=== PATIENT | female | born 1945 | race Caucasian/White ===

== ENCOUNTER 2018-07-29 04:02 | Emergency (ER) | payer OTHER ==
[~2018-07-29] VITALS: Ht 152.4 cm; Wt 72.6 kg
[2018-07-29 04:17] VITALS: BP_SYST 143
[2018-07-29] MEDS ORDERED: MORPHINE 4 MG/ML INJ. SYRINGE IVP ONE (04:45)
[2018-07-29] MEDS ORDERED: ALEN10TA6 PO (04:52)
[2018-07-29] MEDS ORDERED: ATEN-41 PO (04:52)
[2018-07-29 04:56] LABS: ANION GAP 5 (5-15); CALCIUM 8.8 mg/dL (8.4-11.0); CHLORIDE 109 mmol/L (98-107); GLUCOSE 98 mg/dL (70-99); POTASSIUM 4.5 mmol/L (3.5-5.1); SODIUM SERUM 137 mmol/L (136-145); UREA NITROGEN, BLOOD 17 mg/dL (8-21)
[2018-07-29 05:01] LABS: ALANINE AMINOTRANSFERASE 21 U/L (12-78); ALBUMIN 3.6 g/dL (3.4-4.8); ASPARTATE AMINOTRANSFERASE 22 U/L (10-37); TOTAL BILIRUBIN 0.4 mg/dL (0.0-1.0)
[2018-07-29 05:07] LABS: INR 0.9 (0.8-1.2); PROTHROMBIN TIME 9.6 SECS (9.5-12.5)
[2018-07-29 05:09] LABS: BASOPHILS % (AUTO) 0.7 % (0.0-2.0); EOSINOPHILS # (AUTO) 0.4 K/uL (0.0-0.4); EOSINOPHILS % (AUTO) 6.1 % (0.0-4.0); HEMATOCRIT 45.8 % (36-48); LYMPHOCYTES % (AUTO) 32.2 % (20.5-51.5); MEAN CORPUSCULAR HEMOGLOBIN 31 pg (27-31); MEAN CORPUSCULAR HGB CONC 33 % (32-36); MEAN CORPUSCULAR VOLUME 95 fL (79.0-98.0); MONOCYTES # (AUTO) 0.5 K/uL (0.0-1.0); MONOCYTES % (AUTO) 8.6 % (1.7-9.3); NEUTROPHILS # (AUTO) 3.3 K/uL (1.8-7.7); NEUTROPHILS % (AUTO) 52.4 % (40.0-70.0); PLATELET COUNT (AUTO) 138 K/uL (130-430); RED BLOOD CELL COUNT(AUTO) 4.84 MIL/uL (4.2-6.2); RED CELL DISTRIBUTION WIDTH 12.7 % (9.0-15.0); WHITE BLOOD COUNT (AUTO) 6.2 K/uL (4.8-10.8)
[2018-07-29 05:40] VITALS: BP_SYST 142
== END 2018-07-29 05:40 | disposition home or self-care (01) ==
LOC: SED 04:02
DX: M17.11 Unilateral primary osteoarthritis, right knee (principal); I10 Essential (primary) hypertension; Z88.8 Allergy status to other drugs, medicaments and biological substances
CPT/HCPCS: 36415; 71045; 80053; 85025; 85610; 85730; 93005; 93971; 96374; 99284; J2270

== ENCOUNTER 2019-08-20 08:06 | Emergency (ER) | payer OTHER ==
[~2019-08-20] VITALS: Ht 152.4 cm; Wt 70.3 kg
[~2019-08-20 08:06] MED LIST: ALEN10TA7 PO; ATEN-41 PO
[2019-08-20] MEDS ORDERED: NACL 0.9% 1,000 ML IV ONE (08:10)
[2019-08-20 08:22] VITALS: BP_SYST 153
[2019-08-20] MEDS ORDERED: IPRATROPIUM BROM 0.5 MG/2.5 ML VIAL.NEB (ATROVENT) INH ONE ×3 (08:45→10:52)
[2019-08-20] MEDS ORDERED: methylPREDNISolone SOD SUCC/PF 62.5 MG/ML VIAL IVP ONE (08:45)
[2019-08-20] MEDS ORDERED: MAGNESIUM SULFATE 1 GM in NS 50 ML IV ONE (08:45)
[2019-08-20] MEDS ORDERED: ALBUTEROL SULFATE 0.083% 2.5 MG/3 ML VIAL.NEB INH ONE ×3 (08:45→10:52)
[2019-08-20] MEDS ORDERED: MAGNESIUM SULFATE 1 GM/2 ML VIAL ONE (09:10)
[2019-08-20] MEDS ORDERED: methylPREDNISolone SOD SUCC/PF 62.5 MG/ML VIAL ONE (09:34)
[2019-08-20 10:00] LABS: BASOPHILS % (AUTO) 0.5 % (0.0-2.0); EOSINOPHILS # (AUTO) 0.3 K/uL (0.0-0.4); EOSINOPHILS % (AUTO) 5.4 % (0.0-4.0); HEMATOCRIT 41.8 % (36-48); HEMOGLOBIN 13.8 g/dL (12.0-16.0); LYMPHOCYTES # (AUTO) 1.8 K/uL (1.0-5.5); LYMPHOCYTES % (AUTO) 39.2 % (20.5-51.5); MEAN CORPUSCULAR HEMOGLOBIN 32 pg (27-31); MEAN CORPUSCULAR HGB CONC 33 % (32-36); MEAN CORPUSCULAR VOLUME 97 fL (79.0-98.0); MONOCYTES # (AUTO) 0.5 K/uL (0.0-1.0); MONOCYTES % (AUTO) 10.2 % (1.7-9.3); NEUTROPHILS # (AUTO) 2.1 K/uL (1.8-7.7); NEUTROPHILS % (AUTO) 44.7 % (40.0-70.0); PLATELET COUNT (AUTO) 154 K/uL (130-430); RED BLOOD CELL COUNT(AUTO) 4.32 MIL/uL (4.2-6.2); RED CELL DISTRIBUTION WIDTH 13.1 % (9.0-15.0); WHITE BLOOD COUNT (AUTO) 4.7 K/uL (4.8-10.8)
[2019-08-20 10:28] LABS: ANION GAP 7 (5-15); CALCIUM 8.3 mg/dL (8.4-11.0); CHLORIDE 107 mmol/L (98-107); CREATININE 0.63 mg/dL (0.55-1.30); GLUCOSE 84 mg/dL (70-99); POTASSIUM 3.7 mmol/L (3.5-5.1); SODIUM SERUM 139 mmol/L (136-145); UREA NITROGEN, BLOOD 10 mg/dL (8-21)
[2019-08-20 10:32] LABS: ALANINE AMINOTRANSFERASE 28 U/L (12-78); ALBUMIN 3.2 g/dL (3.4-4.8); ASPARTATE AMINOTRANSFERASE 28 U/L (10-37); LIPASE 108 U/L (73-393); TOTAL BILIRUBIN 0.5 mg/dL (0.0-1.0)
[2019-08-20 12:15] VITALS: BP_SYST 141
== END 2019-08-20 12:14 | disposition home or self-care (01) ==
LOC: SED 08:06
DX: J40 Bronchitis, not specified as acute or chronic (principal); R06.2 Wheezing; I10 Essential (primary) hypertension
CPT/HCPCS: 36415; 71045; 80053; 83605; 83690; 85025; 86710; 87040; 94640; 96365; 96375; 99284; J2930; J3475; J7030; J7613

== ENCOUNTER 2020-08-23 10:51 | Inpatient (IN) | payer OTHER, SELFPAY ==
[~2020-08-23] VITALS: Ht 147.3 cm; Wt 78.2 kg
[~2020-08-23 10:51] MED LIST changes: +ALEN10TA25 PO; -ALEN10TA7 PO
[2020-08-23 11:06] VITALS: BP_SYST 142
[2020-08-23] MEDS ORDERED: NACL 0.9% 1,000 ML IV ONE ×2 (12:15→14:00)
[2020-08-23] MEDS ORDERED: LevALBUTEROL HCL 1.25 MG/0.5 ML *CONC.* VIAL.NEB (XOPENEX CONC.) INH ONE (12:30)
[2020-08-23] MEDS ORDERED: IPRATROPIUM BROM 0.5 MG/2.5 ML VIAL.NEB (ATROVENT) INH ONE (12:30)
[2020-08-23 13:37] LABS: BILIRUBIN,URINE NEGATIVE (NEGATIVE); BLOOD, URINE NEGATIVE (NEGATIVE); CLARITY/URINE CLEAR (CLEAR); COLOR,URINE YELLOW (YELLOW); GLUCOSE,URINE NEGATIVE (NEGATIVE); KETONES,URINE 1+ (NEGATIVE); LEUKOCYTE ESTERASE ,URINE NEGATIVE (NEGATIVE); NITRITE, URINE NEGATIVE (NEGATIVE); PH,URINE 6.5 (5.0-8.0); PROTEIN URINE TRACE (NEGATIVE)
[2020-08-23 13:38] LABS: BASOPHILS % (AUTO) 0.3 % (0.0-2.0); EOSINOPHILS % (AUTO) 0.3 % (0.0-4.0); HEMOGLOBIN 12.9 g/dL (12.0-16.0); LYMPHOCYTES # (AUTO) 0.6 K/uL (1.0-5.5); LYMPHOCYTES % (AUTO) 7.3 % (20.5-51.5); MEAN CORPUSCULAR HEMOGLOBIN 32 pg (27-31); MEAN CORPUSCULAR HGB CONC 34 % (32-36); MEAN CORPUSCULAR VOLUME 94 fL (79.0-98.0); MONOCYTES # (AUTO) 0.5 K/uL (0.0-1.0); MONOCYTES % (AUTO) 6.4 % (1.7-9.3); NEUTROPHILS # (AUTO) 7.2 K/uL (1.8-7.7); NEUTROPHILS % (AUTO) 85.7 % (40.0-70.0); PLATELET COUNT (AUTO) 190 K/uL (130-430); RED BLOOD CELL COUNT(AUTO) 4.05 MIL/uL (4.2-6.2); RED CELL DISTRIBUTION WIDTH 12.8 % (9.0-15.0); WHITE BLOOD COUNT (AUTO) 8.4 K/uL (4.8-10.8)
[2020-08-23 13:50] LABS: INR 1.1 (0.8-1.2); PROTHROMBIN TIME 10.8 SECS (9.5-12.5)
[2020-08-23] MEDS ORDERED: AZITHROMYCIN 500 MG in NS 250 ML IV ONE (14:00)
[2020-08-23 14:01] LABS: ANION GAP 11 (5-15); CALCIUM 8.1 mg/dL (8.4-11.0); CHLORIDE 93 mmol/L (98-107); CREATININE 0.61 mg/dL (0.55-1.30); GLUCOSE 109 mg/dL (70-99); POTASSIUM 3.3 mmol/L (3.5-5.1); SODIUM SERUM 127 mmol/L (136-145); UREA NITROGEN, BLOOD 9 mg/dL (8-21)
[2020-08-23 14:06] LABS: ALANINE AMINOTRANSFERASE 37 U/L (12-78); ALBUMIN 2.5 g/dL (3.4-4.8); ASPARTATE AMINOTRANSFERASE 50 U/L (10-37); TOTAL BILIRUBIN 0.7 mg/dL (0.0-1.0)
[2020-08-23] MEDS: AZITHROMYCIN 500 MG in NS 250 ML IV SCH (16:00)
[2020-08-23] MEDS ORDERED: ALBUTEROL MDI INHALATION 8 GM INH INH PRN (16:00)
[2020-08-23] MEDS ORDERED: IPRATROPIUM BROM 0.5 MG/2.5 ML VIAL.NEB (ATROVENT) INH PRN ×2 (16:00→16:30)
[2020-08-23] MEDS: cefTRIAXone 1 GM in D5W 50 ML IV SCH (16:00)
[2020-08-23] MEDS: ENOXAPARIN SODIUM 30 MG/0.3 ML SYRINGE SUBCUT SCH ×2 (16:00→21:00)
[2020-08-23] MEDS: DEXAMETHASONE SOD PHOSPHATE 10 MG/ML VIAL IVP SCH (16:00)
[2020-08-23 16:21] VITALS: BP_SYST 130
[2020-08-23] MEDS ORDERED: cefTRIAXone 1 GM IVPB PREMIX 50 ML IV ONE (17:45)
[2020-08-23] MEDS ORDERED: IPRATROPIUM BROM 0.5 MG/2.5 ML VIAL.NEB (ATROVENT) INH SCH (19:00)
[2020-08-23 19:55] VITALS: BP_SYST 103
[2020-08-23 20:23] VITALS: BP_SYST 142
[2020-08-24] VITALS: BP_SYST 103; BP_SYST 127
[2020-08-24] MEDS: ALBUTEROL MDI INHALATION 8 GM INH INH SCH ×3 (07:21→17:58)
[2020-08-24] MEDS: ENOXAPARIN SODIUM 30 MG/0.3 ML SYRINGE SUBCUT SCH ×2 (10:57→20:37)
[2020-08-24] MEDS: cefTRIAXone 1 GM in D5W 50 ML IV SCH (18:07)
[2020-08-24] MEDS: AZITHROMYCIN 500 MG in NS 250 ML IV SCH (18:08)
[2020-08-24] MEDS: DEXAMETHASONE SOD PHOSPHATE 10 MG/ML VIAL IVP SCH (18:10)
[2020-08-24 20:00] VITALS: BP_SYST 135
[2020-08-25] VITALS: BP_SYST 124
[2020-08-25 08:10] VITALS: BP_SYST 140
[2020-08-25] MEDS: ENOXAPARIN SODIUM 30 MG/0.3 ML SYRINGE SUBCUT SCH ×2 (09:00→20:49)
[2020-08-25] MEDS: guaiFENesin/DEXTROMETHORPHAN 10 ML UDC PO PRN ×2 (10:23→20:50)
[2020-08-25] MEDS: ALBUTEROL MDI INHALATION 8 GM INH INH SCH ×2 (12:53→18:54)
[2020-08-25] MEDS ORDERED: ACETAMINOPHEN 325 MG TABLET PO PRN (15:15)
[2020-08-25] MEDS: cefTRIAXone 1 GM in D5W 50 ML IV SCH (15:23)
[2020-08-25] MEDS: DEXAMETHASONE SOD PHOSPHATE 10 MG/ML VIAL IVP SCH (16:30)
[2020-08-25] MEDS: AZITHROMYCIN 500 MG in NS 250 ML IV SCH (16:30)
[2020-08-25 20:00] VITALS: BP_SYST 134
[2020-08-26] VITALS: BP_SYST 125
[2020-08-26] MEDS: ALBUTEROL MDI INHALATION 8 GM INH INH SCH ×3 (01:26→13:55)
[2020-08-26 08:00] VITALS: BP_SYST 133
[2020-08-26] MEDS: ENOXAPARIN SODIUM 30 MG/0.3 ML SYRINGE SUBCUT SCH ×2 (10:01→21:10)
[2020-08-26 10:11] VITALS: BP_SYST 125
[2020-08-26 12:00] VITALS: BP_SYST 138
[2020-08-26 16:00] VITALS: BP_SYST 133
[2020-08-26] MEDS: AZITHROMYCIN 500 MG in NS 250 ML IV SCH (16:36)
[2020-08-26] MEDS: cefTRIAXone 1 GM in D5W 50 ML IV SCH (16:36)
[2020-08-26] MEDS: DEXAMETHASONE SOD PHOSPHATE 10 MG/ML VIAL IVP SCH (16:37)
[2020-08-26 18:26] LABS: HEMATOCRIT 36.6 % (36-48); HEMOGLOBIN 12.5 g/dL (12.0-16.0); MEAN CORPUSCULAR HEMOGLOBIN 32 pg (27-31); MEAN CORPUSCULAR HGB CONC 34 % (32-36); MEAN CORPUSCULAR VOLUME 94 fL (79.0-98.0); PLATELET COUNT (AUTO) 270 K/uL (130-430); RED CELL DISTRIBUTION WIDTH 12.8 % (9.0-15.0); WHITE BLOOD COUNT (AUTO) 9.6 K/uL (4.8-10.8)
[2020-08-26 18:56] LABS: ALBUMIN 2.3 g/dL (3.4-4.8); ANION GAP 4 (5-15); CALCIUM 8.7 mg/dL (8.4-11.0); CHLORIDE 105 mmol/L (98-107); CREATININE 0.79 mg/dL (0.55-1.30); POTASSIUM 3.2 mmol/L (3.5-5.1); SODIUM SERUM 137 mmol/L (136-145); UREA NITROGEN, BLOOD 19 mg/dL (8-21)
[2020-08-26 19:31] LABS: ALANINE AMINOTRANSFERASE 29 U/L (12-78); ASPARTATE AMINOTRANSFERASE 27 U/L (10-37); GLUCOSE 130 mg/dL (70-99)
[2020-08-26 20:01] LABS: ATYPICAL LYMPHOCYTES % 0 % (0-0); BAND % (MANUAL) 3 % (0-6); BASOPHILS % (MANUAL) 0 % (0-2); EOSINOPHILS % (MANUAL) 1 % (0-7); LYMPHOCYTES % (MANUAL) 13 % (20-46); MONOCYTES % (MANUAL) 12 % (0-11)
[2020-08-26 20:15] VITALS: BP_SYST 143
[2020-08-26] MEDS: guaiFENesin/DEXTROMETHORPHAN 10 ML UDC PO PRN (21:10)
[2020-08-27 00:28] VITALS: BP_SYST 118
[2020-08-27] MEDS: ALBUTEROL MDI INHALATION 8 GM INH INH SCH ×4 (00:39→19:31)
[2020-08-27 08:00] VITALS: BP_SYST 137
[2020-08-27] MEDS: ENOXAPARIN SODIUM 30 MG/0.3 ML SYRINGE SUBCUT SCH (09:24)
[2020-08-27] MEDS ORDERED: POTASSIUM CHLORIDE 20 MEQ TAB.PRT.SR PO ONE (10:15)
[2020-08-27 12:05] VITALS: BP_SYST 142
[2020-08-27] MEDS: cefTRIAXone 1 GM in D5W 50 ML IV SCH (15:05)
[2020-08-27] MEDS: DEXAMETHASONE SOD PHOSPHATE 10 MG/ML VIAL IVP SCH (16:18)
[2020-08-27] MEDS: AZITHROMYCIN 500 MG in NS 250 ML IV SCH (16:18)
[2020-08-27 16:47] VITALS: BP_SYST 130
[2020-08-27 20:00] VITALS: BP_SYST 130
[2020-08-28] VITALS: BP_SYST 126
[2020-08-28] MEDS: ENOXAPARIN SODIUM 30 MG/0.3 ML SYRINGE SUBCUT SCH ×2 (01:15→08:41)
[2020-08-28] MEDS: ALBUTEROL MDI INHALATION 8 GM INH INH SCH ×3 (01:22→14:35)
[2020-08-28 08:00] VITALS: BP_SYST 125
[2020-08-28] MEDS ORDERED: DEC1 PO (10:19)
[2020-08-28] MEDS ORDERED: ALBU8.5H8 INH (10:19)
[2020-08-28 12:50] VITALS: BP_SYST 133
[2020-08-28 14:56] VITALS: BP_SYST 133
== END 2020-08-28 23:18 | disposition home or self-care (01) | DRG 871 ==
LOC: SED 10:51 → STU 15:06
PROVIDERS: ADMIT Internal Medicine Hospice and Palliative Medicine; ATTEND Internal Medicine Hospice and Palliative Medicine
DX: A41.9 Sepsis, unspecified organism (principal); J12.82 Pneumonia due to coronavirus disease 2019; U07.1 COVID-19; J96.01 Acute respiratory failure with hypoxia; I10 Essential (primary) hypertension; Z85.3 Personal history of malignant neoplasm of breast; Z88.8 Allergy status to other drugs, medicaments and biological substances; Z90.710 Acquired absence of both cervix and uterus
CPT/HCPCS: 36415; 36600; 71045; 80053; 81003; 82803-TC; 82962; 83605; 83880; 84484; 85007; 85025; 85027; 85610-TC; 85730-TC; 87040-TC; 93005; 94640; 94760; 96365; 99291; G0378; J0456; J0696; J1100; J1650; J7030; J7050; J7060; J7612